=== PATIENT | female | born 1955 | race Caucasian/White ===

== ENCOUNTER 2024-03-24 12:20 | Emergency (ER) | payer OTHER, SELFPAY ==
[2024-03-24] VITALS (7 sets, daily range): BP systolic 121–129; BP diastolic 73–78; BMI 22.5
[2024-03-24 12:24] LABS: Glucose - Point of Care 469 mg/dl (70-99)
[2024-03-24 12:48] LABS: % Basophils 0.6 % (0-2); % Eosinophils 1.1 % (0-6); % Immature Granulocytes 0.4 % (0-0.5); % Lymphocytes 20.5 % (20.5-51.1); % Monocytes 6.9 % (1.7-9.3); % Neutrophils 70.5 % (42.2-75.2); Absolute Basophils 0.1 10^3/uL (0-0.2); Absolute Eosinophils 0.1 10^3/uL (0-0.7); Absolute Lymphocytes 1.7 10^3/uL (1.2-3.4); Absolute Monocytes 0.6 10^3/uL (0.1-0.6); Absolute Neutrophils 5.7 10^3/uL (1.4-6.5); Hemoglobin 13.1 g/dL (12.0-16.0); Mean Corp Hgb Conc. 33.6 g/dL (33.0-37.0); Mean Corpuscular Hgb 29.6 pg (27.0-31.0); Mean Platelet Volume 10.9 fL (7.4-10.4); Nucleated Red Blood Cells % 0 %; Platelet Count 248 10^3/uL (130-400); Red Blood Cell Count 4.43 10^6/uL (4.20-5.40); Red Cell Dist. Width 12.8 % (11.5-14.5); White Blood Cell Count 8.1 10^3/uL (4.8-10.8)
[2024-03-24 13:10] LABS: ALT (SGPT) 16 U/L (0-35); AST (SGOT) 19 U/L (14-36); Albumin 3.3 g/dl (3.5-5.0); Alkaline Phosphatase 76 U/L (38-126); Blood Urea Nitrogen 16 mg/dl (7-17); Calcium 8.2 mg/dl (8.4-10.2); Carbon Dioxide 19 mmol/L (22-30); Chloride 106 mmol/L (98-107); Glucose 400 mg/dl (70-99); Potassium 4.3 mmol/L (3.5-5.1); Sodium 133 mmol/L (135-145); Total Bilirubin 0.7 mg/dl (0.2-1.3); Total Protein 5.5 g/dl (6.3-8.2); eGFR > 60.00
[2024-03-24] MEDS: NOVOLOG vial 10 UNITS SC (14:00)
[2024-03-24] MEDS: NSS 1000 IV (14:02)
[2024-03-24 14:20] LABS: Urine Albumin Negative (Neg - Trace); Urine Bilirubin Negative (Negative); Urine Character Clear (Clear); Urine Color Yellow; Urine Glucose 3+ (Negative); Urine Ketone Trace (Negative); Urine Leukocyte 1+ (Negative); Urine Nitrite Negative (Negative); Urine Occult Blood Negative (Negative); Urine Specific Gravity 1.015 (<1.030); Urine Urobilinogen Negative (Neg - 1+)
--- NOTE | 2024-03-24 14:25 | ED.GENMED ---
History of Present Illness
General
Chief Complaint: Blood Sugar Problem
Source: patient and family
Exam Limitations: none
Time Seen by Provider: 03/24/24 12:34
Nursing documentation reviewed up to this point in time: agreed with
Travel History
Have you had any contact with someone who has COVID-19?: No
Do you have any symptoms of coronavirus? Fever > 100 degrees, chills, cough, shortness of breath, sore throat, loss of taste or smell, muscle aches, or headache?: No
History of Present Illness
History of Present Illness:
68-year-old female past medical history of diabetes hyperlipidemia presenting to the emergency department today with concerns of elevated sugar levels. Norman lightheaded today of claims that she went to the wrong house when she was going to her
sisters she went to an urgent care they found that her sugar was elevated and sent her to the ER. She claims that she stopped taking her Trulicity 3 weeks ago does not check her sugar level routinely. She also has not follow-up with her primary
care doctor as she normally should. Denies any chest pain shortness of breath nausea vomiting. She claims that she does not have a strict diet and does consume a large amount of carbohydrates.
Review of Systems
Review of Systems
Allergies reviewed?: Yes
All Other Systems: ROS reviewed and negative except as documented in HPI and ROS
Phy Exam
Physical Exam
Physical Exam:
GENERAL: Alert , in no apparent distress
EYE: pupils equal and reactive
NECK: Supple, no significant adenopathy.
ENT: o/p clr, mmm.
CARDIAC: Regular rate and rhythm .
LUNGS: Clear breath sounds bilaterally, no acute respiratory distress, no wheezes/rales/rhonchi
ABDOMEN: Soft, without focal tenderness, no r/g, no cvat
NEUROLOGICAL: Alert and oriented, no focal neuro deficits
SKIN: Warm and dry, skin intact.
MUSCULOSKELETAL: No edema, well perfused.
PSYCH: Normal and appropriate interaction.
Course
Orders/Labs/Results
Orders:
Orders
03/24/24 12:41
CMP [Comprehensive Metabolic Panel] Urgent
Complete Blood Count/With Diff Urgent
03/24/24 13:39
CT Head W/o Iv Contrast Urgent
Comment:
Reason For Exam: headache ams
0.9% Sodium Chloride 1000 ml [Nss] 1,000 ml IV BOLUS
Insulin Aspart [NOVOLOG vial] 10 units SC NOW STA
03/24/24 13:40
Case Management Consult ONCE
Case Management Consult: Discharge Planning
03/24/24 14:02
EKG [Electrocardiogram (*1)] Urgent
Reason for Study: Vertigo / Dizzy
EKG- Treatment ONCE
03/24/24 14:07
Urinalysis Reflex To Culture Urgent
Date Specimen was Collected: 03/24/24
Time Specimen was Collected: 13:56
Urine Microscopic Reflex Cult Urgent
Urine Culture Urgent
[place] Source: U
Specimen Description:
Date Specimen was Collected: 03/24/24
Time Specimen was Collected: 13:56
Abnormal Lab Results
03/24/24 03/24/24 03/24/24
12:22 12:41 14:07
MPV 10.9 H fL
(7.4-10.4)
Sodium 133 L mmol/L
(135-145)
Carbon Dioxide 19 L mmol/L
(22-30)
Creatinine 0.5 L mg/dL
(0.6-1.0)
Glucose 400 H mg/dl
(70-99)
Calcium 8.2 L mg/dl
(8.4-10.2)
Total Protein 5.5 L g/dl
(6.3-8.2)
Albumin 3.3 L g/dl
(3.5-5.0)
Urine Ketones Trace A
(Negative)
Leukocyte Esterase Rfl 1+ A
(Negative)
Urine WBC (Reflex) 30-40 A /HPF
(0-5)
Urine Bacteria (Reflex) Few A
(Negative)
Urine Glucose 3+ A
(Negative)
POC Glucose 469 H* mg/dl
(70-99)
03/24/24 03/24/24
15:05 16:04
MPV
Sodium
Carbon Dioxide
Creatinine
Glucose
Calcium
Total Protein
Albumin
Urine Ketones
Leukocyte Esterase Rfl
Urine WBC (Reflex)
Urine Bacteria (Reflex)
Urine Glucose
POC Glucose 276 H mg/dl 167 H mg/dl
(70-99) (70-99)
03/24/24 12:41
03/24/24 12:41
Vital Signs
Initial and Last Documented VS:
Initial Vital Signs
Pulse Resp BP Pulse Ox
96 17 129/75 99
03/24/24 12:21 03/24/24 12:21 03/24/24 12:21 03/24/24 12:21
Last Documented Vital Signs
Temp Pulse Resp BP Pulse Ox
99 F 93 17 127/73 96
03/24/24 12:22 03/24/24 16:06 03/24/24 16:06 03/24/24 16:06 03/24/24 15:30
MDM/Problems Addressed
MDM/Problems Addressed:
68-year-old female presenting to the emergency department today with concerns of elevated sugar level seen at urgent care sent to the ER. She also felt somewhat confused earlier today and lightheaded. Upon arrival here vital signs normal patient
was found to have an elevated sugar level in the 400s labs without significant anion gap slightly low bicarb. Trace ketones in the urine. findings not consistent with DKA. Patient was seen by case management as well and was given resources and
further recommendations for appropriate outpatient care. Patient claims that she can follow-up very closely with the primary care doctor for further management as well as with endocrine. Additionally considering she claims that she felt somewhat
confused that was likely secondary to sugar CT scan was ordered. She has no focality neurologic examination CVA unlikely. CT scan negative for acute process. Patient's sugar level improving to the 100s. Patient had a thorough discussion with
case management for appropriate outpatient care otherwise stable for discharge. Return precautions given.
Additionally patient's urinalysis with 30-40 white blood cells and bacteria. She claims that she has had frequent see of urination and feels that she might have a UTI. Concerning this plan to treat with Keflex.
*Critical Care Note
Total Time (30-74mins, 75-104mins- exclusive of procedures): Not Applicable
ED Attending Note
-
Portions of this chart may have been created with voice recognition software.� Occasional wrong word or��sound alike� substitutions may have occurred due to the inherent limitations of voice recognition software.
Discharge Plan
Departure
Patient Disposition: Home (Routine Discharge)
Date of Disposition: 03/24/24
Time of Disposition: 17:30
Patient with high blood pressure during this ER visit?: No
Condition: Good
Covid-19: Not Applicable
Discharge Problem:
Hyperglycemia, Acute UTI
Instructions: Type 2 Diabetes (DC)
Prescriptions:
New
cephalexin 500 mg capsule
500 mg PO BID 5 Days Qty: 10 0RF
No Action
loperamide [Imodium] 2 mg Capsule
4 mg PO DAILYPRN PRN (Reason: diarrhea)
glyburide 5 mg tablet
5 mg PO DAILY
citalopram 20 mg tablet
20 mg PO DAILY
simvastatin 20 mg tablet
20 mg PO HS
ibuprofen [Advil] 200 mg Tablet
600 - 800 mg PO DAILYPRN PRN (Reason: mild pain)
lisinopril 2.5 mg tablet
2.5 mg PO DAILY
cyclobenzaprine 5 mg Tablet
5 mg PO TID PRN (Reason: muscle spasms)
Janumet XR 50-500 mg tablet, ER multiphase 24 hr
1 tab PO BID
Trulicity 1.5 mg/0.5 mL pen injector
1.5 mg SC MO@1800
Patient Comments:
03/24/2024, pt. has had trouble filling this prescription due to high cost.
Cbd Gummy
1 gummy PO BID
cholecalciferol (vitamin D3)
1 tab PO DAILY
Referrals:
Ary Manuel MD [Consulting Staff] - Follow up in 10 days
Regina Stevenson DO [Family Provider] -
Activity Restrictions/Additional Instructions:
You came to the emergency department today with concerns of elevated sugar level. Here this improved and receiving insulin and fluids. Please be very strict with your diet and follow-up very close with your primary care doctor and endocrine for
further management. Return to the emergency department for any worsening, new or concerning symptoms. Additionally you may have a UTI. Please take Keflex twice daily for the next 5 days.
Interventions
Interventions:
*Risk Screen - Suicide Last Done: 03/24/24 12:36
*General Assessment Last Done: 03/24/24 12:36
*Neglect/Abuse Screening Last Done: 03/24/24 12:36
ED- Fall Risk Assessment Last Done: 03/24/24 13:29
ED- Neurological Assessment Last Done: 03/24/24 13:29
Discharge Date and Time
Print Language: JAPANESE
[2024-03-24 14:39] LABS: Urine Bacteria Few (Negative); Urine Red Blood Cell 0-2 /HPF (0-2); Urine White Cell 30-40 /HPF (0-5)
--- NOTE | 2024-03-24 14:58 | CM ---
Addendum entered by Neeru Muñiz RN 03/24/24 17:14:
CM further discussed patient calling [employer] to ask for case management services.
Original Note:
CM was consulted as patient's Trulicity was not covered by her insurance. CM spoke with patient and her close friend in the room. Patient stated that three weeks ago she was informed that her Trulicity would not be shipped as the cost was $1500 and
they would not ship without payment. Patient stated that she did not have the funds for her medications. Patient stated that she has been depressed lately and she was too fatigued to follow up with her PCP regarding the Trulicity. Patient stated
that she does have a PCP that she has a relationship with and she does plan to call PCP tomorrow 03/25 to follow up. Patient was followed by an statistician applied in [place], but she has not seen that physician for years.
Patient further described her mood as a 'fog' and she was not cognizant of the fact that she was confused or not feeling well lately. Patient's friend expressed concern that patient's cognitive function may be declining.
Cm provided patient and friend(who is a mental health CM) with resources:
Written information on [facility]. CM sent inquiry for services via site for patient.
Written information on [facility] and [facility].
Written information on local endocrinologists to follow up with her DM management.
Patient is also agreeable to [facility]. CM sent referral via [facility].
CM discussed at length patient getting a Glucometer. Patient stated that hers is 'years old' and is unsure if it's working. CM advised that patient can obtain a Glucometer from [facility] or [facility].
CM updated ED PA with plan.
[2024-03-24 15:07] LABS: Glucose - Point of Care 276 mg/dl (70-99)
[2024-03-24 16:06] LABS: Glucose - Point of Care 167 mg/dl (70-99)
[2024-03-24 18:07] LABS: Glucose - Point of Care 169 mg/dl (70-99)
[2024-03-24] MEDS: KEFLEX 500 MG PO (18:28)
== END 2024-03-24 18:40 | disposition home or self-care (01) ==
LOC: EMR 12:20
PROVIDERS: Physician Assistant; EMERGENCY PHYSICIAN Emergency Medicine; FAMILY PHYSICIAN Internal Medicine
DX: R42 Dizziness and giddiness (principal); R41.0 Disorientation, unspecified; N39.0 Urinary tract infection, site not specified; E11.65 Type 2 diabetes mellitus with hyperglycemia; E78.5 Hyperlipidemia, unspecified; Z91.128 Patient's intentional underdosing of medication regimen for other reason; E11.40 Type 2 diabetes mellitus with diabetic neuropathy, unspecified; K21.9 Gastro-esophageal reflux disease without esophagitis; F41.9 Anxiety disorder, unspecified; F32.A Depression, unspecified; F31.9 Bipolar disorder, unspecified
CPT/HCPCS: 99284; 96360; 96372; 70450; 80053; 81003; 81015; 82962; 85025; 87077; 87086; 87186; 93005